=== PATIENT | male | born 2000 | race Two or more races ===

== ENCOUNTER 2020-11-23 21:06 | Emergency (ER) | payer SELFPAY ==
[~2020-11-23] VITALS: Ht 172.7 cm; Wt 83.9 kg
[2020-11-23 21:12] VITALS: BP 165/100
[2020-11-23 22:49] VITALS: BP 165/100
== END 2020-11-23 22:45 | disposition home or self-care (01) ==
LOC: MED 21:06
DX: F12.10 Cannabis abuse, uncomplicated (principal); F41.9 Anxiety disorder, unspecified; J45.909 Unspecified asthma, uncomplicated
CPT/HCPCS: 71045; 93005; 99283

== ENCOUNTER 2020-12-11 15:41 | Emergency (ER) | payer SELFPAY ==
[~2020-12-11] VITALS: Ht 172.7 cm; Wt 87.1 kg
[2020-12-11 15:45] VITALS: BP 160/94
--- NOTE | 2020-12-11 16:05 | NUR ---
PT C/O SHARP CHEST PAIN, EMT COMPLETING EKG IN TRIAGE.
--- NOTE | 2020-12-11 16:13 | NUR ---
EKG READS SINUS TACHYCARDIA AT 134 HR, DR NUGENT MADE AWARE. PT TO WAIT IN LOBBY.
--- NOTE | 2020-12-11 16:25 | NUR ---
PATIENT AMBULATED TO BIA
--- NOTE | 2020-12-11 16:26 | NUR ---
20 Y/O MALE C/O ANXIETY/PANIC ATTACK X15 MINS AGO. PT STATES HE FELT LIKE HE COULDNT BREATHE AND HIS ARMS ARE TINGLING/NUMB. SPO2 99% RA. PT STATES HE WAS HERE X1 MONTH AGO WITH SAME CC BUT DID NOT TAKE RX. PT WAS REFERRED TO [facility] BUT HAS NOT GONE YET. PMH:ASTHMA NKDA
--- NOTE | 2020-12-11 16:32 | NUR ---
PT HANNAH EVALUATING PT
[2020-12-11] MEDS ORDERED: LORazepam 1 MG TAB PO ONE (16:35)
--- NOTE | 2020-12-11 16:43 | NUR ---
PT AMBULATED TO RESTROOM FOR COLLECTION OF URINE
[2020-12-11] MEDS ORDERED: IBUPROFEN 600 MG TAB PO ONE (16:55)
[2020-12-11 17:52] LABS: BASOPHILS # (AUTO) 0.1 K/uL (0.00-0.22); BASOPHILS % (AUTO) 0.5 % (0.0-2.0); EOSINOPHILS % (AUTO) 0.1 % (0.0-4.0); HEMATOCRIT 49.3 % (36-52); HEMOGLOBIN 17.3 g/dL (12.0-18.0); LYMPHOCYTES # (AUTO) 1.5 K/uL (2.0-11.5); LYMPHOCYTES % (AUTO) 14.1 % (20.5-51.1); MEAN CORPUSCULAR HEMOGLOBIN 34 pg (27-31); MEAN CORPUSCULAR HGB CONC 35 g/dL (33-37); MONOCYTES # (AUTO) 0.7 K/uL (0.8-1.0); MONOCYTES % (AUTO) 6.7 % (1.7-9.3); NEUTROPHILS # (AUTO) 8.7 K/uL (1.8-7.7); NEUTROPHILS % (AUTO) 78.6 % (42.2-75.2); PLATELET COUNT (AUTO) 364 K/uL (140-450); RED BLOOD CELL COUNT(AUTO) 5.08 MIL/uL (4.20-6.10); RED CELL DISTRIBUTION WIDTH 12.7 % (11.6-13.7)
[2020-12-11 18:19] LABS: ALBUMIN 4.8 g/dL (3.4-5.0); ANION GAP 14.7 (8-16); CARBON DIOXIDE 26.4 mmol/L (21-32); CREATININE 1.4 mg/dL (0.6-1.3); POTASSIUM 4.1 mmol/L (3.5-5.1); TOTAL BILIRUBIN 1.3 mg/dL (0.0-1.0)
[2020-12-11] MEDS ORDERED: ATA25 PO (18:34)
[2020-12-11 18:37] LABS: BARBITURATE, URINE NEGATIVE ng/ml (NEG <=200); BENZODIAZEPINE, URINE NEGATIVE ng/mL (NEG <=200); CANNABINOID, URINE POSITIVE ng/mL (NEG <=50); COCAINE, URINE NEGATIVE ng/mL (NEG <=300); OPIATE, URINE NEGATIVE ng/mL (NEG <=2000); PHENCYCLIDINE SCREEN,URINE NEGATIVE ng/mL (NEG <=25)
[2020-12-11 18:59] VITALS: BP 160/94
--- NOTE | 2020-12-11 19:00 | NUR ---
Patient discharged with v/s stable. Written and verbal after care instructions ABOUT MEDICATION, PALPITATION, AND BEHAVORIAL HEALTH SERVICES given and explained. Patient alert, oriented and verbalized understanding of instructions. Ambulatory with steady gait. All questions addressed prior to discharge. ID band removed. Patient advised to follow up with PMD. Rx of HYDROXYZINE HYDROCHLORIDE given. Patient educated on indication of medication including possible reaction and side effects. Opportunity to ask questions provided and answered.
== END 2020-12-11 18:57 | disposition home or self-care (01) ==
LOC: MED 15:41
DX: F41.9 Anxiety disorder, unspecified (principal); F12.90 Cannabis use, unspecified, uncomplicated; R00.2 Palpitations; R07.9 Chest pain, unspecified; J45.909 Unspecified asthma, uncomplicated; Z79.899 Other long term (current) drug therapy
CPT/HCPCS: 36415; 80053; 80305; 84484; 85025; 93005; 99284

== ENCOUNTER 2021-11-22 00:02 | Emergency (ER) | payer SELFPAY ==
[~2021-11-22] VITALS: Ht 172.7 cm; Wt 88.5 kg
[~2021-11-22 00:02] MED LIST: ATA25 PO
[2021-11-22 00:27] VITALS: BP 148/87
--- NOTE | 2021-11-22 02:29 | NUR ---
PATIENT LEFT WITHOUT BEING SEEN BY DR. Khan. NO FURTHER CARE PROVIDED FOR PATIENT.
== END 2021-11-22 02:29 | disposition left against medical advice (07) ==
LOC: MED 00:02
DX: F41.9 Anxiety disorder, unspecified (principal); R00.2 Palpitations; Z53.21 Procedure and treatment not carried out due to patient leaving prior to being seen by health care provider